=== PATIENT | male | born 1955 | race Caucasian/White ===

== ENCOUNTER 2018-03-08 21:24 | Inpatient (IN) | payer BC, SELFPAY ==
--- NOTE | 2018-03-09 00:03 | PDOC.FPRHP ---
- History of Present Illness Chief Complaint: AMS History of Present Illness: This is a 62 yo M who was transferred from [facility] due to AMS. Per [facility] records pt was pulled over by police after being found driving the wrong way down a road. He was found to be combative, confused, and incontinent of urine. Per patient's significant other, he may have taken an unknown substance. Evaluation at the outside facility found a normal CBC, a slightly elevated alk phos of 87 on CMP, and UDS positive for opiates. A CT brain was negative for acute problems, chronic microvascular disease was noted. B/l wrist Xrays found soft tissue swelling on the L and no jaky abnormalities. At the time of presentation to this facility, the patient was very difficult to arouse responding only to sternal rub. There were no contacts available for a history - Home Medications Comments: Unable to determine dt pts altered status - History PMHx: HTN Wrist OA PSHx: cannot determine FHx: cannot determine Social: Cannot determine etoh or tobacco Per hx from [facility], pt uses recreational drugs to include opiates and possibly K2 - Review of Systems ROS unobtainable: due to mental status - Vital signs BP: 140/88 HR: 84 RR: 16 Tmax: 99.4 Pox: 100% on RA Wt: 84 kg - Physical Exam -Constitutional: Pt difficult to arouse. GCS of 10 (opens eyes to pain, verbal response inappropriate, localizes pain) HEENT: normocephalic and atraumatic, PERRLA (sluggish response), conjunctiva clear, no scleral icterus Neck: FROM, trachea midline Chest: no lesions Heart: RRR, normal S1/S2, no murmurs/rubs/gallops Lungs: CTAB, no respiratory distress, good air movement Abdomen: soft, non-tender, bowel sounds present, no masses/distention Musculoskeletal: normal structure, normal tone -Neurological: difficult to evaluate dt being uncooperative. When responsive CN II-XII grossly intact. No facial droop noted, moving all four limbs, responds to pain. Skin: no rash/lesions, good turgor Heme/Lymphatic: no unusual bruising or bleeding Psychiatric: normal mood and affect FMR H&P: Results - Labs Lab results: Per outside records CBC: Hb 13.8, HCt 41, WBC 11, Plt 329 CMP: Na 137, K 4.3, Cl 104, CO2 23, BUN 15, Cr 0.9, glucose 158, Ca 9.4, Tot Protein 7.8, Alb 4.3, Tbili 0.6, AST 27, ALT 25, Alk Phos 87 UDS: Positive for opiates - Radiology Interpretation CT scan - head Status: report reviewed by me (chronic microvascular disease. No acute abnormalites) Other Status: report reviewed by me (b/l wrist Xray. L: Soft tissue swelling R: Old radial fx) FMR H&P: A/P - Problem List (1) Toxic encephalopathy Current Visit: Yes Status: Acute Priority: High Code(s): G92 - TOXIC ENCEPHALOPATHY (2) HTN (hypertension) Current Visit: Yes Status: Acute Priority: Medium Code(s): I10 - ESSENTIAL (PRIMARY) HYPERTENSION (3) Substance abuse Current Visit: Yes Status: Acute Priority: Medium Code(s): F19.10 - OTHER PSYCHOACTIVE SUBSTANCE ABUSE, UNCOMPLICATED - Plan Toxic encephalopathy - likely secondary to unknown drug ingestion - admit to tele - maintenance fluids - monitor GCS - monitor CBC and BMP - NPO until cleared by bedside swallow HTN - per hx from [facility], unclear as to if he takes meds. BP elevated to 150s/90s here. Monitor and treat with PRNs if BP raises into urgency range Substance abuse - chief counsel on cessation PPx - SCD Diet - regular once mental status improves Code Full Dispo: Pt stable. Continue to monitor GCS/mental status. Likely length of stay 24-48 hours FMR H&P: Upper Level - Pertinent history 62 year old white male transferred from [facility] ER after being found driving on the wrong side of the road. Patient was combative, confused, and had urinary incontinence. CBC, CMP, CT head, and bilateral wrist x-rays were normal at outside ER. UDS was positive for opiates. At some point, his friend arrived and informed hospital staff that it is suspected he was using K2. PMH, PSH, meds, and social history unavailable as patient does not respond to questioning. History as listed is based on ER records as the patient does not respond to questions and there is nobody at bedside. - Pertinent findings Temp 99.4 RR 13 HR 79 BP 140/88 O2 sats 98% on Room air Weight 83.9 kg General: Patient is somnolent but in no apparent distress. Does not respond to questioning but did tell the nurse it was cold in his room and said Ow and opened his eyes for brisk sternal rub Eyes: Pupils equal and sluggish. Sclera nonicteric, conjunctiva clear ENT: MMM. Oropharynx clear CV: RRR. No m/r/g. Pulses full and equal in all 4 extremities Respiratory: CTAB. No wheezing, rales, or rhonchi. Breathing unlabored. Patient appears to be protecting airway and having no difficulty with respiratory secretions Abdomen: Nontender, nondistended, no guarding or rebound Ext: No edema. Equal movements bilaterally Skin: No rash or ulcer. No palpable lesions Neuro: No focal deficits. GCS [id number] - Plan Date/Time: 03/09/18 Shell I, Hector Barriga DO, have evaluated this patient and agree with findings/plan as outlined by internet and e business project manager resident. Pertinent changes/additions are listed here. A/P: 1) Acute toxic encephalopathy - Admit to telemetry. Monitor closely. Maintenance fluids. CBC and CMP in the morning. Patient expected to improve gradually with supportive care 2) Code status - Full
[2018-03-09] MEDS ORDERED: Ondansetron ODT 4 MG TAB PO PRN (00:04)
[2018-03-09 00:59] VITALS: BMI 25.2
[2018-03-09] MEDS: Sodium Chloride 0.9% 1,000 ML IV SCH ×2 (01:08→10:17)
[2018-03-09 05:17] LABS: #Lymphocytes 1.6 thou/uL (1.20-3.40); #Monocytes 0.6 thou/uL (0.11-0.59); #Neutrophils 8.4 thou/uL (1.40-6.50); %Basophils 0.1 % (0.0-1.0); %Eosinophils 0.4 % (0.0-10.0); %Neutrophils 78.5 % (42.0-75.0); Hemoglobin 13.8 g/dL (14.0-18.0); Mean Corpuscular HGB CONC 32.9 g/dL (32.0-36.0); Mean Corpuscular Hemoglobin 32.5 pg (27.0-31.0); Platelet Count 331 thou/uL (130-400); RBC Distribution Width 11.8 % (11.5-14.5); Red Blood Cell (RBC) Count 4.25 mill/uL (4.70-6.10); White Blood Cell (WBC) Count 10.6 thou/uL (4.8-10.8)
[2018-03-09 05:38] LABS: Anion Gap 17 mmol/L (10-20); BUN (Urea Nitrogen) 14 mg/dL (8.4-25.7); Calc. Creatinine Clearance 102 mL/min (70-130); Calcium 9.7 mg/dL (7.8-10.44); Carbon Dioxide 23 mmol/L (23-31); Chloride 106 mmol/L (98-107); Estimated GFR-MDRD 90; Glucose 112 mg/dL (80-115); Potassium 3.8 mmol/L (3.5-5.1); Sodium 142 mmol/L (136-145)
--- NOTE | 2018-03-09 11:42 | HP ---
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 I have also examined the patient myself. Briefly, Mr. Gifford is a 62-year-old white male patient who was f ound confused while driving by the [place] police yesterday. Because of his mental confusion and sl ight agitation he was taken to a local ER where he was subsequently transferred to our institution. He had urine drug screen positive for opiates. He has an admitted history of substance abuse. Head CT done in the ER does not show any acute changes. PHYSICAL EXAMINATION: GENERAL: On exam this morning he is awake and alert. He is slightly agitated. VITAL SIGNS: Blood pressure is 152/87, his pulse rate is 81 and regular, respirations 16, his O2 sat uration is 94% on room air. HEENT: Mucous membranes dry. NECK: Supple. CARDIAC: Heart rhythm is regular. S4 gallop. No murmur or rub noted. LUNGS: Diminished, but clear without rales or wheezes. ABDOMEN: Flat and soft. No guarding, rebound or rigidity. NEUROLOGICAL: Confused, slightly combative, but otherwise easily arousable, alert and does answer mo st questions appropriately. He has no focal deficits. LABORATORY DATA: CBC: White count is 10,600, hemoglobin 13.8, hematocrit 42 with an MCV of 99. Karina mistries: Sodium 142, potassium 3.8, chloride 106, bicarbonate 23, BUN 14, creatinine 0.86. Outside urine drug screen positive for opiates. ASSESSMENT: Opiate overdose with possible other substance abuse ingestions. PLAN: The patient has been admitted. We are observing him. Will likely need some benzos to calm hi s agitation. Currently, no indications for Narcan given his respirations are not labored and he is n ot hypopneic.
[2018-03-09 18:26] LABS: HIV (1/2) Antibody/Antigen Non-Reactive (NonReactive); Hep C IgG Ab Non-Reactive (NonReactive); Hep C Index 0.37 S/CO (0-0.79); Syphilis Antibody Nonreactive (Nonreactive); Syphilis Antibody Index 0.06 S/CO (<1.00 Non-Reactive)
[2018-03-09] MEDS: Lorazepam 1 MG TAB PO PRN (20:33)
[2018-03-10] MEDS: Lorazepam 1 MG TAB PO PRN (03:25)
--- NOTE | 2018-03-10 06:48 | PDOC.FM ---
- Subjective Subjective: Patient doing well this AM. No significant overnight events. Patient is feeling better this AM. He feels less agitated and more alert this morning. He did admit to taking two separate pills yesterday. He thought they were both opiates , but is now uncertain of what he ended up taking. - Objective MAR Reviewed: Yes Vital Signs & Weight: Vital Signs (12 hours) Temp Pulse Resp BP BP BP Pulse Ox 03/10/18 03:28 98.2 F 79 18 144/96 H 97 03/10/18 01:32 98.3 F 69 20 141/96 H 98 03/09/18 20:00 99.6 F 67 20 151/89 H 151/89 H 98 Weight Weight 79.787 kg I&O: 03/08/18 03/09/18 03/10/18 06:59 06:59 06:59 Intake Total 500 1440 Balance 500 1440 Result Diagrams: 03/09/18 04:32 03/09/18 04:32 EKG Reviewed by me: No Radiology Reviewed by me: No Phys Exam - Physical Examination Constitutional: NAD HEENT: moist MMs Neck: supple Respiratory: clear to auscultation bilateral Cardiovascular: RRR, no significant murmur Gastrointestinal: soft, no distention, positive bowel sounds Musculoskeletal: no edema, pulses present Neurological: moves all 4 limbs Psychiatric: A&O x 3 Skin: no rash, cap refill <2 seconds Dx/Plan (1) Toxic encephalopathy Code(s): G92 - TOXIC ENCEPHALOPATHY Status: Acute (2) HTN (hypertension) Code(s): I10 - ESSENTIAL (PRIMARY) HYPERTENSION Status: Chronic (3) Substance abuse Code(s): F19.10 - OTHER PSYCHOACTIVE SUBSTANCE ABUSE, UNCOMPLICATED Status: Chronic - Plan Plan: Toxic encephalopathy - likely secondary to unknown drug ingestion - monitor GCS - PRN ativan for agitation - Improved this AM HTN - per hx from [facility], unclear as to if he takes meds - Monitor and treat with PRNs if BP raises into urgency range Substance abuse - direct selling counselor on cessation - ASE score initiated; score of up to 9 PPx - SCD Diet - regular once mental status improves Code Full Dispo: Pt stable. Anticipate d/c home today.
[2018-03-10] MEDS ORDERED: Lisinopril 20 MG TAB PO SCH (09:00)
[2018-03-10 11:57] VITALS: BP 168/106; TEMP 98.4
--- NOTE | 2018-03-10 12:06 | ADD-PRG ---
DATE OF SERVICE: 03/10/2018 This is an addendum to the note of Dr. Hali Begum. Mr. Gifford looks and feels much better this morning. He is not anxious or agitated. Clinically, sta ble. He will be discharged later today.
--- NOTE | 2018-03-11 11:35 | DIS-2 ---
DATE OF ADMISSION: 03/08/2018 DATE OF DISCHARGE: 03/10/2018 ADMITTING ATTENDING: Jodie Neves M.D. DISCHARGE ATTENDING: Yony Engel MD RESIDENT: Hali Begum DO CONSULTATIONS: None. PROCEDURES: None. PRIMARY DIAGNOSES: 1. Toxic encephalopathy secondary to drug use. 2. Polysubstance abuse. 3. Hypertension. DISCHARGE MEDICATIONS: None. HISTORY OF PRESENT ILLNESS AND HOSPITAL COURSE: This is a 62-year-old male transferred from [facility] due to altered mental status. Per [facility] records, the patient was brought over by police after be ing found driving in the wrong direction down the road. He was found to be combative, confused, and incontinent of urine. Per the patient's significant other, he may have taken an unknown substance. Evaluation on outside facilities found normal CBC, slightly elevated alkaline phosphatase of 87 on CM P, and UDS positive for opiates. A CT brain was negative for acute problems, chronic microvascular d isease was noted. Bilateral wrist x-rays were performed at an outside facility which showed soft tis lamont swelling in the left and no bony abnormalities. At time of presentation to the facility, the pat ient was very difficult to arouse, responding only to sternal rub. There were no contacts available for history. The patient remained stable throughout the course of the hospital stay. On initial evaluation, the p atient did appear to be withdrawing. He was alert and oriented x1 to only person. On my initial saira luation of him was complaining that he did not feel right. At that time, he did endorse taking an un known substance. He stated that he was attempting to buy opiates, but did not think that he was give n the drug and what he was intentionally seeking. The following day, the patient was much more alert and he was oriented to person, place and time. He was feeling much better from the prior day. He d id require Ativan twice over the course of the day and a half, but was doing much better. The patien t was able to communicate that he is an opiate abuser and was attempting to take opiates, but did not think that he was given like he initially thought he was buying and had never taken 2 pills at one t jordana like he had done what prompted his admission this time around. The patient was stable prior to d ischarge and essentially back to his baseline. He was counseled on drug cessation and the risks of b uying drugs off the street. DISPOSITION: Stable. DISCHARGE INSTRUCTIONS: 1. Location: Home. 2. Diet: Regular. 3. Activity: No restrictions. 4. Followup: The patient is to follow up with the primary care physician within 7 days of discharge from hospital. This was discussed with the patient. He was understanding and agreeable with the pl venkata.
== END 2018-03-10 13:45 | disposition home or self-care (01) | DRG 917 ==
LOC: ERS 21:24 → 2NO 23:22 → T4-A 03-09 12:57
PROVIDERS: ADMIT Family Medicine; ATTEND Family Medicine
DX: T40.2X1A Poisoning by other opioids, accidental (unintentional), initial encounter (principal); G92 Toxic encephalopathy; Y92.9 Unspecified place or not applicable; I10 Essential (primary) hypertension; F19.10 Other psychoactive substance abuse, uncomplicated
CPT/HCPCS: 36415; 80048; 85025; 86780; 86803; 87389; 94760; Q0162